=== PATIENT | female | born 1980 | race Caucasian/White ===

== ENCOUNTER → 2023-12-27 09:58 | Outpatient (REF) | payer OTHER, SELFPAY | LOC: REG 09:58 | PROVIDERS: ATTENDING PHYSICIAN Physician Assistant | DX: M25.532 Pain in left wrist (principal) | CPT/HCPCS: 73110 ==

== ENCOUNTER → 2024-06-04 10:55 | Outpatient (REF) | payer OTHER, SELFPAY | LOC: HWWDC 10:55 | PROVIDERS: ATTENDING PHYSICIAN Nurse Practitioner Family | DX: Z12.31 Encounter for screening mammogram for malignant neoplasm of breast (principal) | CPT/HCPCS: 77063; 77067 ==

== ENCOUNTER → 2024-06-11 10:04 | Outpatient (REF) | payer OTHER, SELFPAY | LOC: WDC 10:04 | PROVIDERS: ATTENDING PHYSICIAN Nurse Practitioner Family | DX: R92.8 Other abnormal and inconclusive findings on diagnostic imaging of breast (principal) | CPT/HCPCS: 76642 ==

== ENCOUNTER → 2025-06-05 10:32 | Outpatient (REF) | payer OTHER, SELFPAY | LOC: HWWDC 10:32 | PROVIDERS: ATTENDING PHYSICIAN Advanced Practice Midwife; FAMILY PHYSICIAN Physician Assistant Medical | DX: Z12.31 Encounter for screening mammogram for malignant neoplasm of breast (principal) | CPT/HCPCS: 77063; 77067 ==

== ENCOUNTER 2025-06-22 17:23 | Emergency (ER) | payer OTHER, SELFPAY ==
[2025-06-22 17:44] VITALS: BP 144/91
--- NOTE | 2025-06-22 18:59 | ED.GENMED ---
History of Present Illness
General
Chief Complaint: Jaw Pain
Source: patient
Exam Limitations: none
Time Seen by Provider: 06/22/25 18:49
Nursing documentation reviewed up to this point in time: agreed with
History of Present Illness
History of Present Illness:
45-year-old female with no past medical history states she was hit by a line drive softball from about 30 feet away in the right jaw about 4 hours ago. She is unable to open her mouth more than 2 cm. She has pain in the right jaw and a loose lower
front tooth
Past History
Past History
ED Past Medical History: None
ED Past Surgical History: Orthopedic
Social History
Tobacco: Non-smoker
Alcohol: None
Personal:
Living: with family
Employment: Employed
Review of Systems
Review of Systems
Allergies reviewed?: Yes
All Other Systems: ROS reviewed and negative except as documented in HPI and ROS
Phy Exam
Physical Exam
Physical Exam:
GENERAL: No acute distress. A&Ox3.
CONSTITUTIONAL: Afebrile.
EYES: clear, conjunctivae normal
ENMT: moist mucus membranes, unable to open mouth more than 2 cm. Tenderness, mild swelling right mid mandible. right lower tooth #25 is loose and is a 5 mm vertical laceration in the gum below it. There is no active bleeding. The rest of the
teeth are intact.
RESPIRATORY: Regular respirations, nonlabored, lungs clear.
CARDIOVASCULAR: Regular rate and rhythm, no murmurs, no rubs.
MUSCULOSKELETAL: Moves with ease. Well perfused.
SKIN: Warm, dry, pink
PSYCH: Normal mood and affect. Well kept, interactive and appropriate
NEUROLOGIC: Awake, alert and oriented. No focal neurological deficits
Course
Orders/Labs/Results
Orders:
Orders
06/22/25 18:56
CT Facial Bones W/o Iv Contras Urgent
Comment:
Reason For Exam: hit in right jaw with hit softball
06/22/25 20:45
Amoxicillin 875 mg/Clav 125 mg [Augmentin 875 mg/125 mg] 1 tablet PO NOW STA
Vital Signs
Initial and Last Documented VS:
Initial Vital Signs
Temp Pulse Resp BP Pulse Ox
98.3 F 64 16 144/91 98
06/22/25 17:44 06/22/25 17:44 06/22/25 17:44 06/22/25 17:44 06/22/25 17:44
Last Documented Vital Signs
Temp Pulse Resp BP Pulse Ox
98.3 F 64 16 135/96 98
06/22/25 17:44 06/22/25 17:44 06/22/25 17:44 06/22/25 21:26 06/22/25 19:05
MDM/Problems Addressed
Differential Diagnosis Includes:
Fracture mandible, contusion, dental injury
MDM/Problems Addressed:
45-year-old female with no past medical history states she was hit by a line drive softball from about 30 feet away in the right jaw about 4 hours ago. She is unable to open her mouth more than 2 cm. She has pain in the right jaw. Her right lower
tooth #25 is loose and is a vertical laceration in the gum below it. There is no active bleeding. The rest of the teeth are intact.
CAT scan of the facial bones reveals a nondisplaced fracture of the right lower mandible
Maxillofacial surgeon Dr. Emma Sandra consulted, copy of CAT scan sent to her.
She recommends the patient be transferred down to [place] for treatment of the mandible fracture.
Patient updated on plan
8:30 PM:
Spoke with maxillofacial surgeon Dr. Lebron at [place], sent him video images of the CAT scan
He agrees with Augmentin, and he will see patient in his office in 2 days, Tuesday, anytime between 8 and noon and discuss same-day surgery for the following day. Copy of CT disc sent with pt.
Patient is satisfied with this plan. She is very well appearing and comfortable
Ambulated out with normal gait at discharge
*Pulse Oximetry
SaO2: 98
Oxygen Mode of Delivery: Room air
Patient hypoxic: no
*Critical Care Note
Total Time (30-74mins, 75-104mins- exclusive of procedures): Not Applicable
ED Attending Note
-
Portions of this chart may have been created with voice recognition software.� Occasional wrong word or��sound alike� substitutions may have occurred due to the inherent limitations of voice recognition software.
Discharge Plan
Departure
Patient Disposition: Home (Routine Discharge)
Date of Disposition: 06/22/25
Time of Disposition: 20:55
Patient with high blood pressure during this ER visit?: No
Condition: Good
Discharge Problem:
Fracture of mandible, Tooth injury
Instructions: Jaw Fracture
Prescriptions:
New
amoxicillin-pot clavulanate 875-125 mg tablet
1 tab PO BID Qty: 20 0RF
No Action
Vitamins
1 tab PO DAILY
Referrals:
Chau Lebron, VALERIE [Non-Admitting Privileges, Oral Surgery]
Referral Note: [facility]
[address] [facility]
[address] [phone]
Alen Resendez PA-C [Family Provider, Family Practice]
Activity Restrictions/Additional Instructions:
As we discussed, I spoke with Dr. Lebron, he said you can come to his office Tuesday anytime between 8 AM and 12 noon.
Tylenol and or Ibuprofen as needed for pain
I sent a prescription to your pharmacy for Augmentin
Dr. Lebron
[facility]
[address]
[place]

Interventions
Interventions:
*Risk Screen - Suicide Last Done: 06/22/25 17:44
*General Assessment Last Done: 06/22/25 17:44
*Neglect/Abuse Screening Last Done: 06/22/25 17:44
*ED- Fall Risk Assessment Last Done: 06/22/25 17:44
*ED COVID-19 Vaccine History Last Done: 06/22/25 17:44
*Nursing Disposition Last Done: 06/22/25 21:26
ED-EENT Assessment Last Done: 06/22/25 21:24
ED- Cardiac Assessment Last Done: 06/22/25 21:24
Discharge Date and Time
Discharge Date/Time: 06/22/25 21:27
Print Language: [place]
[2025-06-22] MEDS: AUGMENTIN 875 MG/125 MG 1 TABLET PO (21:08)
[2025-06-22 21:26] VITALS: BP 135/96
== END 2025-06-22 21:27 | disposition home or self-care (01) ==
LOC: EMR 17:23
PROVIDERS: EMERGENCY PHYSICIAN Emergency Medicine; FAMILY PHYSICIAN Physician Assistant Medical
DX: S02.69XA Fracture of mandible of other specified site, initial encounter for closed fracture (principal); K08.89 Other specified disorders of teeth and supporting structures; S01.512A Laceration without foreign body of oral cavity, initial encounter; W21.07XA Struck by softball, initial encounter
CPT/HCPCS: 99284; 70486